=== PATIENT | female | born 1985 | race Caucasian/White ===

== ENCOUNTER 2016-10-09 15:44 | Outpatient (CLI) | payer OTHER ==
[~2016-10-09 15:44] MED LIST: PROVENTIL2.5 MG/3 M INH
== END 2016-10-09 22:16 | disposition home or self-care (01) ==
LOC: MLB 15:44
PROVIDERS: ATTEND Family Medicine
DX: M79.641 Pain in right hand (principal); M25.50 Pain in unspecified joint; M25.419 Effusion, unspecified shoulder; D64.9 Anemia, unspecified